=== PATIENT | male | born 1950 | race Caucasian/White ===

== ENCOUNTER → 2020-03-02 | Outpatient (CLI) | payer MEDICARE, OTHER ==
[2014-09-10 12:30] VITALS: BP 136/81
[~2020-03-02] MED LIST: ALLO300T PO; ASPI-630 PO; ATOR40TA PO; CYAN50008 PO; EZET10TA20 PO; MULT-245 PO; NAPR500T8 PO; OMEP40CA2 PO; PHYT100T PO; UBID200C32 PO; [UNRECOGNIZED DRUG - REMARK] PO
== END | disposition home or self-care (01) ==
LOC: LAB 13:00
PROVIDERS: ATTEND Registered Nurse
DX: Z03.818 Encounter for observation for suspected exposure to other biological agents ruled out (principal)
CPT/HCPCS: 87635

== ENCOUNTER → 2020-03-06 | Day surgery (SDC) | payer MEDICARE, OTHER ==
[~2020-03-06] MED LIST changes: +IPRATRPIUM/ALBUTEROL 0.5/2.5MG 3 ML NEBU. NEB PRN; +IV RINGERS SOLUTION,LACTATED 1,000 ML IV SCH; +ONDANSETRON PF 4 MG/2 ML VIAL. IV PRN; +PROPOFOL 10,000 MCG/ML (20ML) VIAL IV ONE
[2020-03-06 14:01] VITALS: BP 145/80
--- NOTE | 2020-03-08 12:06 | PATHOLOGY ---
[facility] Accession Number: [id number] . 01 Material submitted: . PART A: stomach - GASTRIC BX PART B: esophagus - ESOPHAGEAL BX . 01 Clinical history: . Dysphagia . 02 Diagnosis: A. Gastric biopsy "gastric biopsy": - Mild chronic reactive gastropathy. - There is no evidence of atypia or malignancy. - The immunoperoxidase stain for Helicobacter pylori is negative. . B. Squamous mucosa and submucosa "esophageal biopsy": - Reflux esophagitis with focal ulceration and with acute and chronic inflammation and chronic esophagitis. - There is no evidence of goblet cell metaplasia, dysplasia or malignancy. . ([facility]:bobbin stripper; 03/08/2020) [facility] 03/08/2020 1025 Local . 02 Comment: A GMS stain for fungus will be done and additional report will follow. ([facility]:bobbin stripper; 03/08/2020) . 02 Electronically signed: . Camacho Keene MD, Pathologist NPI- [id number] . 01 Gross description: . A. The specimen is received in formalin labeled "Clapsaddle, Maurice, gastric BX" and consists of a fragment of parsons tissue measuring 0.4 x 0.3 x 0.2 cm which is entirely submitted in A1. . B. The specimen is received in formalin labeled "Clapsaddle, Maurice, esophageal BX" and consists of multiple fragments of white-parsons tissue measuring 0.6 x 0.3 x 0.2 cm in aggregate which are entirely submitted in B1. ([facility]; 03/07/2020) JFQ/JFQ 03/07/2020 1556 Local . 02 Pathologist provided ICD-10: K31.9, K21.0, K22.10, K20.9 . 02 CPT . 491301, 121268, [id number] Specimen Comment: A courtesy copy of this report has been sent to [phone] Specimen Comment: Report sent to Performed at: [address], [place] [id number] MD Conrad Kearns MD Phone: [phone] Performed at: 02 [facility] [address] [place], [place] [id number] MD Jose Lewis MD Phone: [phone]
== END ==
LOC: SURG 10:03
PROVIDERS: ATTEND Emergency Medicine
DX: R13.10 Dysphagia, unspecified (principal); K21.0 Gastro-esophageal reflux disease with esophagitis; K29.50 Unspecified chronic gastritis without bleeding; K44.9 Diaphragmatic hernia without obstruction or gangrene; E78.5 Hyperlipidemia, unspecified; Z85.828 Personal history of other malignant neoplasm of skin; Z72.89 Other problems related to lifestyle; Z79.82 Long term (current) use of aspirin
CPT/HCPCS: 43239; 43450; J2704; J7120; 88305; 88312; 88342